=== PATIENT | female | born 1965 | race Caucasian/White ===

== ENCOUNTER → 2017-01-07 | Outpatient (CLI) | payer OTHER ==
[2017-01-07 15:59] LABS: BASOPHILS # (AUTO) 0.04 10*3/UL; BASOPHILS % (AUTO) 0.5 % (0-1); HEMATOCRIT 46.4 % (37.0-47.0); HEMOGLOBIN 15.5 g/dL (12.0-16.0); IMM GRAN % (AUTO) 0.1 % (0-5); IMM GRAN# (AUTO) 0.01 10*3/UL; LYMPHOCYTES # (AUTO) 1.99 10*3/uL; LYMPHOCYTES % (AUTO) 22.6 % (10-50); MEAN CORPUSCULAR HGB CONC 33.4 g/dL (33-37); MEAN PLATELET VOLUME 10.5 FL (7.4-12.2); MONOCYTES # (AUTO) 0.89 10*3/UL (0.3-0.8); MONOCYTES % (AUTO) 10.1 % (5-15); NEUTROPHILS # (AUTO) 5.78 10*3/UL; NEUTROPHILS % (AUTO) 65.7 % (50-80); RDW COEFFICIENT OF VARIATION 13.8 % (11.5-14.5); RED BLOOD COUNT 4.85 10^6/uL (4.20-5.40)
[2017-01-07 16:02] LABS: PLATELET MORPHOLOGY COMMENT NORMAL MORPHOLOGY (NORM)
== END ==
LOC: MOB LAB 13:51
PROVIDERS: ATTEND Obstetrics & Gynecology
DX: N92.1 Excessive and frequent menstruation with irregular cycle (principal); R10.2 Pelvic and perineal pain
CPT/HCPCS: 36415; 84439; 84443; 85025; 87491; 87591

== ENCOUNTER → 2017-01-09 | Outpatient (CLI) | payer OTHER ==
--- NOTE | 2017-01-09 16:34 | DI ---
US PELVIC COMPLETE (NON OB),01/09/2017 11:00 AM: Clinical History: Menometrorrhagia Previous Exam: None at this facility. Findings: Multiple transabdominal grayscale and color Doppler sonographic images are obtained through the pelvi s demonstrating a normal-appearing uterus measuring 9.9 x 5.4 x 5.9 cm with an endometrial stripe taya suring 6 mm. There is no free fluid. Impression: Normal uterus.
--- NOTE | 2017-01-09 16:39 | DI ---
US PELVIC-TRANSVAGINAL,01/09/2017 11:00 AM: Clinical History: Menometrorrhagia Previous Exam: Transabdominal images performed on the same date. Findings: Multiple transvaginal grayscale and color Doppler sonographic images are obtained through the pelvis demonstrating a uterus measuring 10.0 x 5.4 x 5.9 cm with an endometrial stripe measuring 6 mm. There is no free air nor free fluid. The ovaries and not seen on this exam. There is a small fibroid seen within the anterior myometrium. Impression: Small anterior myometrial fibroid otherwise unremarkable. Note: Given the patient's age, this patient could be perimenopausal.
== END ==
LOC: US 10:54
PROVIDERS: ATTEND Obstetrics & Gynecology
DX: N92.1 Excessive and frequent menstruation with irregular cycle (principal); R10.2 Pelvic and perineal pain; D25.9 Leiomyoma of uterus, unspecified
CPT/HCPCS: 76830; 76856

== ENCOUNTER 2017-04-26 21:58 | Emergency (ER) | payer OTHER ==
[2017-04-26] MEDS ORDERED: LIDOCAINE HCL 1%/EPI 1:100,000 - 20 ML VIAL SUBCUT ONE (22:30)
[2017-04-26] MEDS ORDERED: LIDOCAINE HCL 1%/EPI 1:100,000 - 20 ML VIAL ONE (23:33)
[2017-04-27] MEDS ORDERED: IBUPROFEN 400 MG TABLET PO ONE (00:09)
[2017-04-27 00:48] LABS: HIV ANTIBODY NEGATIVE (N); HIV-1 P24 ANTIGEN NEGATIVE (N)
[2017-04-27 06:02] VITALS: RESP 20; TEMP 97.8
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
[2017-05-02 06:53] LABS: HEPATITIS B SURFACE AG Negative (Negative)
== END 2017-04-27 00:10 | disposition home or self-care (01) ==
LOC: ER 21:58
DX: S01.511A Laceration without foreign body of lip, initial encounter (principal); S00.531A Contusion of lip, initial encounter; Y04.2XXA Assault by strike against or bumped into by another person, initial encounter
CPT/HCPCS: 12011; 86703; 86803; 87340; 99282